=== PATIENT | male | born 1955 | race Native Hawaiian/Other Pacific Islander ===

== ENCOUNTER → 2018-08-28 | Outpatient (CLI) | payer BC ==
[2018-08-28 15:05] LABS: Basophils % (A) 1 %; Eosinophils # (A) 0.3 k/uL (0-0.7); Eosinophils % (A) 5 %; HCT 40.8 % (39.0-53.0); Lymphocytes # (A) 1.9 k/uL (1.0-4.8); Lymphocytes % (A) 33 %; MCH 25.8 pg (25.0-35.0); MCHC 31.9 g/dL (31.0-37.0); MCV 80.7 fL (80.0-100.0); Mean Platelet Volume 7.5; Monocytes # (A) 0.3 k/uL (0-1.0); Monocytes % (A) 5 %; Neutrophils # (A) 3.1 k/uL (1.3-7.7); Neutrophils % (A) 53 %; Platelet Count 193 k/uL (150-450); RBC 5.06 m/uL (4.30-5.90); RDW 14.6 % (11.5-15.5); WBC 5.8 k/uL (3.8-10.6)
[2018-08-28 18:22] LABS: Albumin 4.3 g/dL (3.80-4.90); Albumin/Globulin Ratio 1.95 (1.60-3.17); Anion Gap 6.7 mmol/L (4.00-12.00); Calcium 9.2 mg/dL (8.7-10.3); Carbon Dioxide 23.3 mmol/L (21.6-31.8); Globulin 2.2 g/dL (1.6-3.3); Potassium 4.2 mmol/L (3.5-5.5); Total Bilirubin 0.3 mg/dL (0.3-1.2); Total Protein 6.5 g/dL (6.2-8.2)
[2018-08-28 22:01] LABS: Hemoglobin A1C 12.1 % (4.0-6.0)
== END | disposition home or self-care (01) ==
LOC: LABWHC1 13:19
PROVIDERS: ATTEND Orthopaedic Surgery Hand Surgery
DX: S61.401A Unspecified open wound of right hand, initial encounter (principal); E11.622 Type 2 diabetes mellitus with other skin ulcer; L98.499 Non-pressure chronic ulcer of skin of other sites with unspecified severity
CPT/HCPCS: 36415; 80053; 83036; 84134; 85025

== ENCOUNTER → 2019-10-18 | Outpatient (CLI) | payer MEDICARE ==
--- NOTE | 2019-10-18 12:28 | XR ---
EXAMINATION TYPE: XR chest 2V DATE OF EXAM: 10/18/2019 COMPARISON: 06/18/2009 INDICATION: Contusion of thoracic wall, 3 months from fall TECHNIQUE: Frontal and lateral views of the chest are obtained. FINDINGS: The heart size is normal. The pulmonary vasculature is normal. The lungs are clear. No pneumothorax is evident. No displaced rib fractures are evident. Fractures a re evident. Sternotomy wires are in the midline. IMPRESSION: 1. No acute pulmonary process. 2. No acute or subacute posttraumatic change is evident
== END | disposition home or self-care (01) ==
LOC: RADXRMAIN 11:42
PROVIDERS: ATTEND Internal Medicine
DX: S20.219A Contusion of unspecified front wall of thorax, initial encounter (principal)
CPT/HCPCS: 71046

== ENCOUNTER 2019-11-14 21:10 | Emergency (ER) | payer MEDICARE ==
[2019-11-14 21:26] VITALS: TEMP 98.5
[2019-11-14] MEDS ORDERED: SODIUM CHLORIDE 0.9% 1,000 ML IV STA (21:36)
--- NOTE | 2019-11-14 21:38 | ED ---
Abdominal Pain HPI <Jt Davis - Last Filed: 11/14/19 23:42> - General Source: patient, RN notes reviewed, old records reviewed Mode of arrival: ambulatory Limitations: no limitations - History of Present Illness MD Complaint: abdominal pain, other (Right knee pain) -: days(s) Location: epigastric Radiation: epigastric Migration to: no migration Severity: moderate Severity scale (1-10): 4 Consistency: constant Improves With: nothing Worsens With: nothing Associated Symptoms: nausea <Jerome Garcia - Last Filed: 11/17/19 13:54> - General Chief Complaint: Abdominal Pain Stated Complaint: Abd Pain/Chest Time Seen by Provider: 11/14/19 21:36 - History of Present Illness Initial Comments: This is a 64-year-old male DF for evaluation patient to the ER for evaluation regards to abdominal pain persistent abdominal pain for one month patient concern for some neurologic type pain is anterior abdomen also complaining of some right knee pain which is been wearing a brace or no injury. No fevers. Patient was prescribed Neurontin for neuropathic pain he states is not really working. Symptoms are episodic with no modifying factors (Jerome Garcia) - Related Data Allergies Allergy/AdvReac Type Severity Reaction Status Date / Time No Known Allergies Allergy Verified 11/14/19 21:26 Review of Systems ROS Other: All systems not noted in ROS Statement are negative. <Jt Davis - Last Filed: 11/14/19 23:42> ROS Other: All systems not noted in ROS Statement are negative. <Jerome Garcia - Last Filed: 11/17/19 13:54> ROS Statement: Those systems with pertinent positive or pertinent negative responses have been documented in the HPI. Past Medical History Past Medical History: Diabetes Mellitus, Hyperlipidemia, Hypertension History of Any Multi-Drug Resistant Organisms: None Reported Past Surgical History: Coronary Bypass/CABG, Tonsillectomy Smoking Status: Never smoker Past Alcohol Use History: None Reported Past Drug Use History: None Reported <Jerome Garcia - Last Filed: 11/17/19 13:54> General Exam Limitations: no limitations General appearance: alert, in no apparent distress Head exam: Present: atraumatic, normocephalic, normal inspection Eye exam: Present: normal appearance, PERRL, EOMI. Absent: scleral icterus, conjunctival injection, periorbital swelling ENT exam: Present: normal exam, mucous membranes moist Neck exam: Present: normal inspection. Absent: tenderness, meningismus, lymphadenopathy Respiratory exam: Present: normal lung sounds bilaterally. Absent: respiratory distress, wheezes, rales, rhonchi, stridor Cardiovascular Exam: Present: regular rate, normal rhythm, normal heart sounds. Absent: systolic murmur, diastolic murmur, rubs, gallop, clicks GI/Abdominal exam: Present: soft, normal bowel sounds. Absent: distended, tenderness, guarding, rebound, rigid Extremities exam: Present: normal inspection, full ROM, normal capillary refill. Absent: tenderness, pedal edema, joint swelling, calf tenderness Back exam: Present: normal inspection Neurological exam: Present: alert, oriented X3, CN II-XII intact Psychiatric exam: Present: normal affect, normal mood Skin exam: Present: warm, dry, intact, normal color. Absent: rash <Jerome Garcia - Last Filed: 11/17/19 13:54> Course <Jerome Garcia - Last Filed: 11/17/19 13:54> Vital Signs 11/14/19 11/14/19 21:24 23:50 Temperature 98.5 F Pulse Rate 101 H 107 H Respiratory 18 16 Rate Blood Pressure 145/83 123/86 O2 Sat by Pulse 97 100 Oximetry - Reevaluation(s) Reevaluation #1: Medical records reviewed Patient's no acute distress Patient informed of results, questions answered Patient will follow-up with primary care (Jerome Garcia) Medical Decision Making - Lab Data Result diagrams: 11/14/19 21:51 11/14/19 21:50 <Jt Davis - Last Filed: 11/14/19 23:42> - Lab Data Result diagrams: 11/14/19 21:51 11/14/19 21:50 - Radiology Data Radiology results: report reviewed (CT head and pelvis negative for acute disease x-ray knee negative for acute disease), image reviewed <Jerome Garcia - Last Filed: 11/17/19 13:54> - Medical Decision Making 64 male with nonspecific specific periumbilical epigastric abdominal pain. Crampy in nature, patient can be discharged home (Jerome Garcia) - Lab Data Lab Results 11/14/19 11/14/19 11/14/19 Range/Units 21:50 21:51 21:51 WBC 6.2 (3.8-10.6) k/uL RBC 5.57 (4.30-5.90) m/uL Hgb 15.2 (13.0-17.5) gm/dL Hct 45.6 (39.0-53.0) % MCV 81.9 (80.0-100.0) fL MCH 27.2 (25.0-35.0) pg MCHC 33.3 (31.0-37.0) g/dL RDW 13.3 (11.5-15.5) % Plt Count 199 (150-450) k/uL Neutrophils % 48 % Lymphocytes % 37 % Monocytes % 8 % Eosinophils % 3 % Basophils % 1 % Neutrophils # 3.0 (1.3-7.7) k/uL Lymphocytes # 2.3 (1.0-4.8) k/uL Monocytes # 0.5 (0-1.0) k/uL Eosinophils # 0.2 (0-0.7) k/uL Basophils # 0.1 (0-0.2) k/uL Sodium 135 L (137-145) mmol/L Potassium 4.6 (3.5-5.1) mmol/L Chloride 103 (98-107) mmol/L Carbon Dioxide 23 (22-30) mmol/L Anion Gap 9 mmol/L BUN 19 (9-20) mg/dL Creatinine 0.66 (0.66-1.25) mg/dL Est GFR (CKD-EPI)AfAm >90 (>60 ml/min/1.73 sqM) Est GFR (CKD-EPI)NonAf >90 (>60 ml/min/1.73 sqM) Glucose 323 H (74-99) mg/dL Plasma Lactic Acid Clayton 1.2 (0.7-2.0) mmol/L Calcium 9.4 (8.4-10.2) mg/dL Total Bilirubin 0.5 (0.2-1.3) mg/dL AST 25 (17-59) U/L ALT 22 (4-49) U/L Alkaline Phosphatase 91 (38-126) U/L Troponin I (0.000-0.034) ng/mL Total Protein 6.8 (6.3-8.2) g/dL Albumin 3.9 (3.5-5.0) g/dL Amylase 37 (30-110) U/L Lipase 121 (23-300) U/L 11/14/19 Range/Units 21:51 WBC (3.8-10.6) k/uL RBC (4.30-5.90) m/uL Hgb (13.0-17.5) gm/dL Hct (39.0-53.0) % MCV (80.0-100.0) fL MCH (25.0-35.0) pg MCHC (31.0-37.0) g/dL RDW (11.5-15.5) % Plt Count (150-450) k/uL Neutrophils % % Lymphocytes % % Monocytes % % Eosinophils % % Basophils % % Neutrophils # (1.3-7.7) k/uL Lymphocytes # (1.0-4.8) k/uL Monocytes # (0-1.0) k/uL Eosinophils # (0-0.7) k/uL Basophils # (0-0.2) k/uL Sodium (137-145) mmol/L Potassium (3.5-5.1) mmol/L Chloride (98-107) mmol/L Carbon Dioxide (22-30) mmol/L Anion Gap mmol/L BUN (9-20) mg/dL Creatinine (0.66-1.25) mg/dL Est GFR (CKD-EPI)AfAm (>60 ml/min/1.73 sqM) Est GFR (CKD-EPI)NonAf (>60 ml/min/1.73 sqM) Glucose (74-99) mg/dL Plasma Lactic Acid Clayton (0.7-2.0) mmol/L Calcium (8.4-10.2) mg/dL Total Bilirubin (0.2-1.3) mg/dL AST (17-59) U/L ALT (4-49) U/L Alkaline Phosphatase (38-126) U/L Troponin I <0.012 (0.000-0.034) ng/mL Total Protein (6.3-8.2) g/dL Albumin (3.5-5.0) g/dL Amylase (30-110) U/L Lipase (23-300) U/L Disposition Is patient prescribed a controlled substance at d/c from ED?: No <Jt Davis - Last Filed: 11/14/19 23:42> <Jerome Garcia - Last Filed: 11/17/19 13:54> Clinical Impression: Abdominal pain Disposition: HOME SELF-CARE Condition: Stable Instructions (If sedation given, give patient instructions): Abdominal Pain (ED) Referrals: Preston Menendez MD [Primary Care Provider] - 1-2 days
[2019-11-14 22:00] LABS: Basophils # (A) 0.1 k/uL (0-0.2); Basophils % (A) 1 %; Eosinophils # (A) 0.2 k/uL (0-0.7); Eosinophils % (A) 3 %; HCT 45.6 % (39.0-53.0); HGB 15.2 gm/dL (13.0-17.5); Lymphocytes # (A) 2.3 k/uL (1.0-4.8); Lymphocytes % (A) 37 %; MCH 27.2 pg (25.0-35.0); MCHC 33.3 g/dL (31.0-37.0); MCV 81.9 fL (80.0-100.0); Mean Platelet Volume 7.5; Monocytes # (A) 0.5 k/uL (0-1.0); Monocytes % (A) 8 %; Neutrophils % (A) 48 %; Platelet Count 199 k/uL (150-450); RBC 5.57 m/uL (4.30-5.90); RDW 13.3 % (11.5-15.5); WBC 6.2 k/uL (3.8-10.6)
[2019-11-14 22:10] LABS: ALT 22 U/L (4-49); AST 25 U/L (17-59); African American GFR (CKD) >90 (>60 ml/min/1.73 sqM); Albumin 3.9 g/dL (3.5-5.0); Alkaline Phosphatase 91 U/L (38-126); Amylase 37 U/L (30-110); Anion Gap 9 mmol/L; Blood Urea Nitrogen 19 mg/dL (9-20); Calcium 9.4 mg/dL (8.4-10.2); Carbon Dioxide 23 mmol/L (22-30); Chloride 103 mmol/L (98-107); Glucose 323 mg/dL (74-99); Lipase 121 U/L (23-300); Non-African American GFR(CKD) >90 (>60 ml/min/1.73 sqM); Potassium 4.6 mmol/L (3.5-5.1); Sodium 135 mmol/L (137-145); Total Bilirubin 0.5 mg/dL (0.2-1.3); Total Protein 6.8 g/dL (6.3-8.2)
--- NOTE | 2019-11-14 23:20 | CT ---
EXAMINATION TYPE: CT abdomen pelvis w con DATE OF EXAM: 11/14/2019 COMPARISON: 07/21/2011 HISTORY: Abdomen chest pain CT DLP: 1781.9 mGycm Automated exposure control for dose reduction was used. CONTRAST: Performed with IV Contrast, patient injected with 100 mL of Isovue 300. Lung bases are clear of consolidation. There is no pleural effusion. There is minimal subsegmental at electasis right lung base. Right diaphragm is slightly elevated. Heart size is normal. Liver spleen pancreas gallbladder stomach appear intact. Bile ducts are not dilated. There is no adrenal mass. Kidneys show satisfactory contrast opacification. There is no hydronephrosi s. There is normal excretion on the delayed images. Ureters are not dilated. There is some duplicatio n of the left upper collecting system. There are small left-sided renal parapelvic cysts. Ureters are not dilated. There is no retroperitoneal adenopathy. Appendix is filled with air and appe ars normal. Bladder distends smoothly. There is no inguinal hernia. There is no free fluid in the pelvis. There is no mesenteric edema. There is no ascites or free air. There is no evidence of a bowel obstruction. There are multiple sigmoid diverticula. I see no sign of diverticulitis. There are spondylotic changes in the lumbar spine with spur formation. There is no lumbar compression fracture. The bony pelvis is intact. IMPRESSION: Normal appendix. Mild sigmoid diverticulosis. No sign of acute abdomen and pelvis. Overall no adverse change compared to old exam.
--- NOTE | 2019-11-14 23:28 | XR ---
EXAMINATION TYPE: XR knee 4V RT DATE OF EXAM: 11/14/2019 COMPARISON: NONE HISTORY: Knee swelling TECHNIQUE: 4 views FINDINGS: I see no acute fracture nor dislocation. There is irregular bony defect through the inferio r margin of the patella that measures 18 x 10 mm that could relate to an old injury. This could be os sification of the infrapatellar tendon. This does not have appearance of an acute fracture. There is no evidence of joint effusion. Joint spaces are fairly normal. IMPRESSION: Deformity of the inferior patella could relate to old injury and tendon tear with ossific ation. No acute bony abnormality. No joint effusion.
[2019-11-14 23:55] VITALS: BP 123/86; PULSE 107; RESP 16
== END 2019-11-14 23:56 | disposition home or self-care (01) ==
LOC: EC 21:10
DX: R10.13 Epigastric pain (principal); M25.561 Pain in right knee
CPT/HCPCS: 36415; 80053; 82150; 83605; 83690; 84484; 85025; 73564; 74177; 99284; 96360; 96361; Q9967

== ENCOUNTER → 2019-12-18 | Outpatient (CLI) | payer MEDICARE ==
[2019-12-18 17:43] LABS: Calcium 9.2 mg/dL (8.7-10.3); Magnesium 1.7 mg/dL (1.5-2.4)
[2019-12-18 19:01] LABS: Hemoglobin A1C 9.4 % (4.0-6.0)
== END | disposition home or self-care (01) ==
LOC: LABWHC1 08:58
PROVIDERS: ATTEND Psychiatry & Neurology Pain Medicine
DX: G89.4 Chronic pain syndrome (principal); Z79.899 Other long term (current) drug therapy
CPT/HCPCS: 36415; 82306; 82310; 82550; 82607; 82746; 83036; 83519; 83735; 84207; 84425; 84446; 84590; 84591; 84597

== ENCOUNTER → 2020-01-28 | Outpatient (CLI) | payer MEDICARE | END | disposition home or self-care (01) | LOC: LABWHC1 14:22 | PROVIDERS: ATTEND Psychiatry & Neurology Pain Medicine | DX: R79.9 Abnormal finding of blood chemistry, unspecified (principal) | CPT/HCPCS: 36415; 82550 ==

== ENCOUNTER → 2020-02-12 | Outpatient (CLI) | payer MEDICARE ==
[2020-02-12 15:17] LABS: African American GFR (CKD) 91.1 (60.0-200.0); Albumin 4.7 g/dL (3.80-4.90); Albumin/Globulin Ratio 1.96 (1.60-3.17); Anion Gap 11.2 mmol/L (4.00-12.00); Calcium 9.7 mg/dL (8.7-10.3); Carbon Dioxide 22.8 mmol/L (21.6-31.8); Chol/HDL Ratio 3.67; Globulin 2.4 g/dL (1.6-3.3); Non-African American GFR(CKD) 78.6 (60.0-200.0); Potassium 4.2 mmol/L (3.5-5.5); Total Bilirubin 0.4 mg/dL (0.3-1.2); Total Protein 7.1 g/dL (6.2-8.2)
== END | disposition home or self-care (01) ==
LOC: LABWHC1 08:26
PROVIDERS: ATTEND Nurse Practitioner Adult Health
DX: I10 Essential (primary) hypertension (principal); E78.2 Mixed hyperlipidemia
CPT/HCPCS: 36415; 80053; 80061

== ENCOUNTER → 2020-04-20 | Outpatient (CLI) | payer MEDICARE ==
[2020-04-21 00:40] LABS: Prostate Specific Antigen 0.9 ng/mL (0.0-4.5)
== END | disposition home or self-care (01) ==
LOC: LABWHC1 14:22
PROVIDERS: ATTEND Psychiatry & Neurology Pain Medicine
DX: Z51.81 Encounter for therapeutic drug level monitoring (principal); N40.0 Benign prostatic hyperplasia without lower urinary tract symptoms
CPT/HCPCS: 36415; 82306; 82550; 84153; 84207

== ENCOUNTER → 2020-06-29 | Outpatient (CLI) | payer MEDICARE ==
--- NOTE | 2020-06-30 06:38 | MR ---
EXAMINATION TYPE: MR shoulder LT wo con DATE OF EXAM: 06/29/2020 COMPARISON: None HISTORY: Left shoulder pain x 2 years Multiplanar multiecho imaging of the left shoulder was performed without contrast. Subscapularis tendon is intact. Biceps tendon is intact. There is 1 cm area of increased fluid signal at the greater tuberosity of the humerus consistent with degenerative cyst. There is significant thickening and increased signal in the supraspinatus tendon over the humeral head and greater tuberosity. There is no retraction. Glenoid lou appear intact. There is hypertrophic spurring at the AC joint and mild impingement on t he supraspinatus tendon and muscle. The coronal images show full-thickness defect in the supraspinatu s tendon on image 11. There is tiny amount of fluid in the subdeltoid bursa. IMPRESSION: Full-thickness tear of the supraspinatus tendon with also thickening and edema related to tendinitis. Mild subacromial impingement. Small shoulder joint effusion.
== END | disposition home or self-care (01) ==
LOC: RADMRIMAIN 20:43
PROVIDERS: ATTEND Orthopaedic Surgery
DX: M75.112 Incomplete rotator cuff tear or rupture of left shoulder, not specified as traumatic (principal); M67.814 Other specified disorders of tendon, left shoulder; M75.42 Impingement syndrome of left shoulder

== ENCOUNTER → 2020-08-03 | Outpatient (CLI) | payer MEDICARE ==
[2020-08-03 18:45] LABS: HGB 13.6 g/dL (13.0-17.0); MCHC 31.6 g/dL (32.0-37.0); MCV 82.2 fL (80.0-97.0); Mean Platelet Volume 10.5 fL (9.5-12.2); Platelet Count 231 X 10*3/uL (140-440); RBC 5.23 X 10*6/uL (4.40-5.60); RDW 14.1 % (11.5-14.5); WBC 8.63 X 10*3/uL (4.50-10.00)
[2020-08-03 21:06] LABS: African American GFR (CKD) 103.5 (60.0-200.0); Albumin 4.7 g/dL (3.80-4.90); Albumin/Globulin Ratio 1.74 (1.60-3.17); BUN/Creat Ratio 18.89 Ratio (12.00-20.00); Calcium 9.6 mg/dL (8.7-10.3); Chol/HDL Ratio 3.83; Globulin 2.7 g/dL (1.6-3.3); Non-African American GFR(CKD) 89.3 (60.0-200.0); Potassium 4.9 mmol/L (3.5-5.5); Total Bilirubin 0.5 mg/dL (0.3-1.2); Total Protein 7.4 g/dL (6.2-8.2)
[2020-08-03 21:19] LABS: Hemoglobin A1C 10.8 % (4.0-6.0)
== END | disposition home or self-care (01) ==
LOC: LABWHC1 08:50
PROVIDERS: ATTEND Internal Medicine
DX: E11.9 Type 2 diabetes mellitus without complications (principal); E78.5 Hyperlipidemia, unspecified; I10 Essential (primary) hypertension; I25.10 Atherosclerotic heart disease of native coronary artery without angina pectoris
CPT/HCPCS: 36415; 80053; 80061; 83036; 85027

== ENCOUNTER 2020-08-26 05:53 | Day surgery (SDC) | payer MEDICARE ==
[2020-08-25 09:08] VITALS: BMI 34.6
--- NOTE | 2020-08-25 15:43 | HP ---
HISTORY AND PHYSICAL DATE OF SURGERY: 08/26/2020 Angelo Roldan is a 64-year-old gentleman seen with progressive left shoulder pain. Treatment options were discussed. He elects to proceed with arthroscopy. Consent was obtained. Medical and cardiac clearances were obtained. PAST MEDICAL HISTORY: Insulin-dependent diabetes, hypertension, hyperlipidemia. SURGICAL HISTORY: Coronary artery bypass surgery. DAILY MEDICATIONS: 1. Aspirin. 2. Insulin. 3. Metformin. 4. Metoprolol. 5. Rosuvastatin. ALLERGIES: None. SOCIAL HISTORY: Denies tobacco use currently. PHYSICAL EVALUATION OF THE LEFT SHOULDER: Flexion is 90, abduction 70, external rotation is 30 with pain and weakness. Tenderness along the anterior lateral acromion and rotator cuff insertion site. Impingement is positive 90. Drop-arm sign positive. His distal neurovascular exam is intact. Radiographs of the left shoulder revealed a type 2 acromion evidence for acromioclavicular joint osteoarthritis and cystic changes of the greater tuberosity. Left shoulder MRI revealed a rotator cuff tendon tear along with acromioclavicular joint osteoarthritis. IMPRESSION: 1. Left shoulder impingement with rotator cuff tear. 2. Left shoulder acromioclavicular joint osteoarthritis. 3. Hypertension. 4. Hyperlipidemia. 5. Insulin-dependent diabetes. PLAN: Left shoulder arthroscopy with subacromial decompression, arthroscopic rotator cuff repair, Agnieszka procedure and debridement. MMODL / IJN: [id number] /
[~2020-08-26 05:53] MED LIST: DEXAMETHASONE SOD PHOSPHATE 4 MG/ML 1 ML VIAL IV ONE; LACTATED RINGERS 1,000 ML IV SCH; LIDOCAINE 1% (10MG/ML) FOR IV START INTRADERMA PRN
[2020-08-26 06:35] LABS: Glucose,Whole Blood 317 mg/dL (75-99)
[2020-08-26] MEDS ORDERED: INSULIN ASPART (NovoLOG) 100 UNIT/ML VIAL SQ ONE ×3 (06:54→11:34)
[2020-08-26] MEDS ORDERED: ONDANSETRON 4 MG/2 ML VIAL IVP PRN (07:00)
[2020-08-26] MEDS ORDERED: MIDAZOLAM 2 MG/2 ML VIAL IV ONE (07:04)
[2020-08-26] MEDS ORDERED: SUCCINYLCHOLINE CHLORIDE 100 MG/5 ML SYR IV ONE (07:16)
[2020-08-26] MEDS ORDERED: PROPOFOL 10 MG/ML 20 ML VIAL IV ONE (07:16)
[2020-08-26] MEDS ORDERED: ROCURONIUM 10 MG/ML (5 ML VIAL) IV ONE (07:16)
[2020-08-26] MEDS ORDERED: fentaNYL (PF) 50 MCG/ML 2 ML AMP ONE (07:16)
[2020-08-26] MEDS ORDERED: PHENYLEPHRINE-0.9% NACL SYG 1,000 MCG/10 ML SYRINGE ONE (07:16)
[2020-08-26] MEDS ORDERED: LIDOCAINE 1% INJ 10MG/ML (20 ML MDV) ONE (07:16)
[2020-08-26] MEDS ORDERED: GLYCOPYRROLATE 0.2 MG/ML 2 ML VIAL ONE (07:16)
[2020-08-26] MEDS ORDERED: ROPIVACAINE 5 MG/ML 30 ML VIAL ONE (07:16)
[2020-08-26] MEDS ORDERED: NEOSTIGMINE 1 MG/ML 10 ML VIAL ONE (07:16)
[2020-08-26] MEDS ORDERED: LACTATED RINGERS 1,000 ML IV ONE (08:15)
--- NOTE | 2020-08-26 09:37 | P.OP ---
Date of Procedure: 08/26/20 Preoperative Diagnosis: Left shoulder impingement Postoperative Diagnosis: 1. Left shoulder rotator cuff tear 2. Left shoulder impingement 3. Left shoulder acromioclavicular joint osteoarthritis 4. Left shoulder superficial labral tear Procedure(s) Performed: 1. Left shoulder arthroscopic rotator cuff repair 2. Left shoulder arthroscopic subacromial decompression 3. Left shoulder arthroscopic Agnieszka procedure 4. Left shoulder arthroscopic debridement labral tear Implants: 4Arthrex swivel lock anchors Anesthesia: GETA, regional (Interscalene block) Surgeon: Dada Coy Stunt Driver #1: Francisco Love Estimated Blood Loss (ml): 11 Pathology: none sent Condition: stable Disposition: PACU Indications for Procedure: 64-year-old gentleman seen with progressive left shoulder pain. After treatment options were discussed, he elected to proceed with arthroscopy. Operative Findings: see description of procedure Description of Procedure: Patient underwent an interscalene block by department of anesthesia. The patient was then taken to the operative suite. The patient underwent a general anesthetic by the department of anesthesia. The patient was placed into a lateral position and secured. There was appropriate padding of the bony prominence. Left shoulder was then prepped and draped in normal sterile orthopedic fashion. We placed the extremity in 10 pounds of longitudinal traction. A posterior incision was now made for a posterior working portal site. The trocar and cannula were inserted into the glenohumeral joint. Arthroscopy was initiated. Spinal needle was now inserted anteriorly, to ascertain the anterior working portal site. An incision was now made in that area, a trocar was inserted followed by a probe. The biceps tendon was absent. There was some superficial tearing of the superior labrum. There were grade 1 chondromalacia changes. I debrided that superficial tearing of the labrum. I again probe the labrum and it was found to be stable. Instruments now removed from the glenohumeral joint. Utilizing the posterior working portal site, the trocar and cannula were inserted into the subacromial space. Arthroscopy initiated. I made an incision 2 fingerbreadths lateral to the acromion. I introduced my trocar followed by my ArthroCare ablator. I now began ablating thick subacromial bursal tissue, which exposed the undersurface of the anterior acromion. There was diminished subacromial space. There was a very prominent anterior acromion. A motorized bur was introduced and a subacromial decompression was performed. I also excised some osteophytes off the inferior aspect of the distal clavicle. The AC joint was visualized and noted to be fairly arthritic. The motorized bur was introduced in the anterior portal site and a Agnieszka procedure was performed without difficulty, decompressing the AC joint nicely. I turned my attention to the rotator cuff. There was a 3 cm rotator cuff tear involving the distal supr aspinatus and it was also a intrasubstance tear measuring 1.5 cm involving the anterior aspect of the distal supraspinatus.. I debrided the margins getting down to stable tendon tissue. I performed a [id number] repair of the intrasubstance tear utilizing 2 Arthrex fiber tape sutures. The suture ends were clipped. We noted an excellent [id number] repair. I introduced my motorized bur and abraded the footprint area, getting some petechial bleeding. I now made an accessory portal site off the lateral aspect of the acromion. I punched 2 holes medial for medial row fixation with the assistance of Francisco MOODY carefully tapping the punch with a mallet as I held the punch and the camera. I now introduced both anchors into the pre-punched holes and Francisco MOODY tapped them with the mallet as I held anchors and the camera. Francisco MOODY now screwed the anchors in place a while I held the anchor guide and camera. All 8 limbs of suture were now passed through good bites of rotator cuff tendon. I now punched 2 holes for lateral row fixation again I held the punch and camera while Francisco MOODY used a mallet to tap in the punch. We now passed sutures through both anchors and individually I introduced the anchors into the pre-punch holes I held the anchor guide in position with one hand holding the camera with the other hand while Francisco MOODY tensioned the sutures and screwed in the anchors one at a time. All residual suture limbs were now clipped. We had good compression of the tendon along the entire footprint. I injected 1 mL Renyte intra-articular. Instruments now removed from the portal sites. All portal sites were approximated with nylon suture. Sterile dressings were applied followed by a shoulder immobilizer. Francisco MOODY assisted in this complex case. The patient was awakened, transferred to a bed, and taken to recovery in stable condition.
[2020-08-26 09:38] VITALS: TEMP 96.8
[2020-08-26] MEDS: HYDROmorphone 0.5 MG/0.5 ML SYRINGE IVP PRN ×2 (09:46→09:51)
[2020-08-26 09:57] LABS: Glucose,Whole Blood 313 mg/dL (75-99)
--- NOTE | 2020-08-26 10:39 | P.ANPRN ---
Procedure Note - Anesthesia - Nerve Block Performed Left Interscalene Time Out Performed: Yes (07:04) Date of Procedure: 08/26/20 Procedure Start Time: Procedure Stop Time: Location of Patient: PreOp Indication: Acute Post-Operative Pain, Requested by Surgeon (Dr Coy) Sedation Type: Sedate with meaningful contact maintained Preparation: Sterile Prep Position: Supine Catheter: None Needle Types: Pajunk Needle Gauge: Other (see comment) (22g) Ultrasound used to visualize needle placement: Yes Ultrasound used to observe medication spread: Yes Injectate: 0.5% Ropivacaine (see comment for volume) (20cc) Blood Aspirated: No Pain Paresthesia on Injection Noted: No Resistance on Injection: Normal Image Stored and Saved: Yes Events: Uneventful and Well Tolerated
[2020-08-26 11:13] LABS: Glucose,Whole Blood 307 mg/dL (75-99)
[2020-08-26 11:46] VITALS: BP 141/93; PULSE 88; RESP 18
[2020-08-26 12:01] LABS: Glucose,Whole Blood 284 mg/dL (75-99)
== END 2020-08-26 12:37 | disposition home or self-care (01) ==
LOC: OR 05:53
PROVIDERS: ATTEND Orthopaedic Surgery
DX: M75.102 Unspecified rotator cuff tear or rupture of left shoulder, not specified as traumatic (principal); M25.812 Other specified joint disorders, left shoulder; M19.012 Primary osteoarthritis, left shoulder; S43.432A Superior glenoid labrum lesion of left shoulder, initial encounter; X58.XXXA Exposure to other specified factors, initial encounter; E11.9 Type 2 diabetes mellitus without complications; I10 Essential (primary) hypertension; E78.2 Mixed hyperlipidemia; F10.11 Alcohol abuse, in remission; Z87.891 Personal history of nicotine dependence; Z95.1 Presence of aortocoronary bypass graft; Z90.89 Acquired absence of other organs; Z82.49 Family history of ischemic heart disease and other diseases of the circulatory system; Z79.82 Long term (current) use of aspirin; Z79.4 Long term (current) use of insulin; Z79.899 Other long term (current) drug therapy
CPT/HCPCS: 29826; 29827; 29824; 64415; 76942; C1713 ×3; J2250; J2710; J0690; J2405; J2001; J3010; J2795; J2370; J0330; J2704; J1170

== ENCOUNTER → 2021-06-04 | Outpatient (CLI) | payer MEDICARE ==
[2021-06-04 11:07] LABS: ALT 19 U/L (10-49); AST 18 U/L (14-35); Albumin 4.2 g/dL (3.8-4.9); Albumin/Globulin Ratio 1.56 (1.60-3.17); Alkaline Phosphatase 59 U/L (41-126); BUN/Creat Ratio 15.86 Ratio (12.00-20.00); Blood Urea Nitrogen 11.1 mg/dL (9.0-27.0); Carbon Dioxide 20.9 mmol/L (20.0-27.5); Chloride 101 mmol/L (96-109); Globulin 2.7 g/dL (1.6-3.3); Glucose 263 mg/dL (70-110); LDL Cholesterol,Calculated 32.3 mg/dL (0.0-131.0); Non-African American GFR(CKD) 98.3 (60.0-200.0); Potassium 4.2 mmol/L (3.5-5.5); Sodium 135 mmol/L (135-145); Total Protein 6.9 g/dL (6.2-8.2)
== END | disposition home or self-care (01) ==
LOC: LABWHC1 07:41
PROVIDERS: ATTEND Internal Medicine Interventional Cardiology
DX: E78.2 Mixed hyperlipidemia (principal)
CPT/HCPCS: 36415; 80053; 80061

== ENCOUNTER 2021-09-05 08:44 | Emergency (ER) | payer MEDICARE ==
[2021-09-05 08:54] VITALS: BP 151/92; TEMP 98.5
[2021-09-05] MEDS ORDERED: KETOROLAC 15 MG/ML 1 ML VIAL IM STA (09:04)
[2021-09-05] MEDS ORDERED: HYDROmorphone 1 MG/ML 1 ML SYRINGE IM STA (09:07)
[2021-09-05] MEDS: HYDROmorphone 1 MG/ML 1 ML SYRINGE IM STA ×2 (09:07→09:09)
--- NOTE | 2021-09-05 09:07 | ED ---
General Adult HPI - General Chief complaint: Fall Stated complaint: Fell, Pain in ribs Time Seen by Provider: 09/05/21 08:55 Source: patient, RN notes reviewed, old records reviewed Mode of arrival: ambulatory Limitations: no limitations - History of Present Illness Initial comments: This is a 65-year-old male who presents emergency department stating that at 2:30 in morning he was moving some stuff and he fell down a couple of steps per patient states he did not hit his head he did not hit his neck he has no headache no neck pain patient denies any numbness weakness. Patient states he hit the left side of his ribs when he fell and that is the area is tender. Patient denies any anterior chest pain patient denies any shortness of breath or difficulty breathing he states it only hurts when he rates. Patient denies any back pain. Patient denies any abdominal pain patient denies nausea vomiting diarrhea. Patient denies any extremity pain. - Related Data Home Medications Medication Instructions Recorded Confirmed Aspirin [Adult Low Dose Aspirin EC] 81 mg PO DAILY 08/25/20 08/26/20 Ergocalciferol [Vitamin D2 (1250 1,250 mcg PO WEEKLY 08/25/20 08/26/20 Mcg = 57746 Iu)] Metoprolol Succinate (ER) [Toprol 50 mg PO QAM 08/25/20 08/26/20 Xl] Rosuvastatin [Crestor] 20 mg PO HS 08/25/20 08/26/20 Telmisartan 40 mg PO 1600 08/25/20 08/26/20 metFORMIN HCL [Glucophage] 1,000 mg PO BID 08/25/20 08/26/20 metFORMIN HCL [Glucophage] 500 mg PO 1600 08/25/20 08/26/20 Previous Rx's Medication Instructions Recorded HYDROcodone/APAP 7.5-325MG [[place] 1 each PO Q6HR PRN #28 tab 08/26/20 7.5] Ibuprofen [Motrin] 600 mg PO Q6HR PRN #20 tab 09/05/21 Allergies Allergy/AdvReac Type Severity Reaction Status Date / Time No Known Allergies Allergy Verified 09/05/21 08:54 Review of Systems ROS Statement: Those systems with pertinent positive or pertinent negative responses have been documented in the HPI. ROS Other: All systems not noted in ROS Statement are negative. Past Medical History Past Medical History: Diabetes Mellitus, Hyperlipidemia, Hypertension History of Any Multi-Drug Resistant Organisms: None Reported Past Surgical History: Coronary Bypass/CABG, Tonsillectomy Additional Past Surgical History / Comment(s): eye's. Past Psychological History: No Psychological Hx Reported Smoking Status: Never smoker Past Alcohol Use History: None Reported Past Drug Use History: None Reported General Exam - General Exam Comments Initial Comments: GENERAL: Patient is well-developed and well-nourished. Patient is nontoxic and well- hydrated and is in moderate distress. ENT: Neck is soft and supple. No significant lymphadenopathy is noted. Oropharynx is clear. Moist mucous membranes. Neck has full range of motion without eliciting any pain. EYES: The sclera were anicteric and conjunctiva were pink and moist. Extraocular movements were intact and pupils were equal round and reactive to light. Eyelids were unremarkable. PULMONARY: Unlabored respirations. Good breath sounds bilaterally. No audible rales rhonchi or wheezing was noted. CARDIOVASCULAR: Patient has tenderness in the left lower ribs. ABDOMEN: Soft and nontender with normal bowel sounds. SKIN: Skin is clear with no lesions or rashes and otherwise unremarkable. NEUROLOGIC: Patient is alert and oriented x3. Cranial nerves II through XII are grossly intact. Motor and sensory are also intact. Normal speech, volume and content. Symmetrical smile. MUSCULOSKELETAL: Normal extremities with adequate strength and full range of motion. LYMPHATICS: No significant lymphadenopathy is noted PSYCHIATRIC: Normal psychiatric evaluation. Limitations: no limitations Course Vital Signs 09/05/21 08:51 Temperature 98.5 F Pulse Rate 102 H Respiratory 18 Rate Blood Pressure 151/92 O2 Sat by Pulse 98 Oximetry Medical Decision Making - Medical Decision Making X-ray of the chest and ribs shows a seventh and eighth rib fracture. Patient received Dilaudid and Toradol in the emergency department. Disposition Clinical Impression: Rib fractures, Fall Disposition: HOME SELF-CARE Condition: Good Instructions (If sedation given, give patient instructions): Fall Prevention for Older Adults (ED), Rib Fracture (ED) Additional Instructions: Patient should use the incentive spirometer at least once every hour. Patient should return if there is any shortness of breath or worsening symptoms. Prescriptions: Ibuprofen [Motrin] 600 mg PO Q6HR PRN #20 tab PRN Reason: For pain Is patient prescribed a controlled substance at d/c from ED?: No Referrals: Preston Menendez MD [Primary Care Provider] - 1-2 days Time of Disposition: 09:49
[2021-09-05] MEDS ORDERED: SODIUM CHLORIDE 0.9% 1,000 ML IV ONE (09:12)
--- NOTE | 2021-09-05 09:40 | XR ---
Single view chest and left RIBS. HISTORY: Trauma chest pain. COMPARISON: 10/18/2019. TECHNIQUE: 5 views of left RIBS and chest were obtained. There are displaced acute fractures of the left seventh and eighth ribs posterolaterally. There is no pneumothorax or pleural effusion. The lungs are clear. The heart and pulmonary vasculatur e are normal. Median sternotomy wires. IMPRESSION: 1. No acute cardiopulmonary disease. 2. Acute displaced fractures of the left seventh and eighth ribs.
[2021-09-05] MEDS ORDERED: HYDROcodone/APAP 7.5-325MG 1 EACH TAB PO ONE (09:50)
[2021-09-05] MEDS ORDERED: ACET/COD 300 MG/30 MG STARTER PACK 6 TAB BTL PO STA (09:51)
[2021-09-05 10:03] VITALS: PULSE 68; RESP 16
== END 2021-09-05 10:03 | disposition home or self-care (01) ==
LOC: EC 08:44
DX: S22.42XA Multiple fractures of ribs, left side, initial encounter for closed fracture (principal); E11.9 Type 2 diabetes mellitus without complications; I10 Essential (primary) hypertension; E78.5 Hyperlipidemia, unspecified; W10.9XXA Fall (on) (from) unspecified stairs and steps, initial encounter; S22.32XA Fracture of one rib, left side, initial encounter for closed fracture
CPT/HCPCS: 71101; 99284; 96372; J1170; J1885

== ENCOUNTER → 2021-09-23 | Outpatient (CLI) | payer MEDICARE ==
--- NOTE | 2021-09-23 09:58 | CT ---
EXAMINATION TYPE: CT chest wo con DATE OF EXAM: 09/23/2021 INDICATION: Lt sided rib fractures CT DLP: 508 mGy.cm Automated Exposure Control for Dose Reduction was Utilized. TECHNIQUE AND CONTRAST: CT scan of the chest without contrast. COMPARISON: X-ray dated 09/05/2021 FINDINGS: Bilateral lower lobar peripheral reticulation and slight loss of volume. Milder changes are seen at t he lateral aspect of the right upper lobe. Left upper lobe linear atelectasis. Elevated right hemidia phragm with adjacent right basal subsegmental pulmonary atelectasis. No definite lung nodule or suspi cious lesion. Patent trachea and main bronchi. No pleural or pericardial effusion. Slight cardiomegaly. Coronary and arterial atherosclerotic calcifications. No pathologically enlarged lymph nodes in the chest. Sternotomy wire sutures. Mildly displaced fractures of the posterior axill nelson portions of the left sixth and seventh ribs with nondisplaced fractures of the anterior aspects o f the left sixth, seventh and eighth ribs. Suspected chronic healed rib fractures bilaterally. Degene rative changes of the thoracic spine. IMPRESSION: Acute fractures of the left sixth, seventh and eighth ribs as described above. Please correlate clini constance. Other findings as described above.
== END | disposition home or self-care (01) ==
LOC: RADCTMAIN 06:41
PROVIDERS: ATTEND Family Medicine
DX: S22.42XA Multiple fractures of ribs, left side, initial encounter for closed fracture (principal); J98.11 Atelectasis
CPT/HCPCS: 71250